=== PATIENT | female | born 1990 | race Caucasian/White ===

== ENCOUNTER 2018-12-26 14:09 | Emergency (ER) | payer BC ==
[2018-12-26 14:18] VITALS: BMI 26.6
--- NOTE | 2018-12-26 14:39 | PDOC ---
History of Present Illness - General Chief Complaint: Lightheaded Stated Complaint: WEAKNESS/DIZZINESS Time Seen by Provider: 12/26/18 14:37 - History of Present Illness Initial Comments: 12/26/18 14:38 28 yo , recent D&C (12/17) at [facility] wga, and h/o migraine disorder, chronic lyme, who p/w pelvic, lower abdominal cramping, and lightheadedness. Patient reports 3 days of lower abdominal cramping, nausea w/out vomiting, intermittent dark, red, vaginal bleeding, noted on urination beginning (12/23/18). 1 panty liner per day. Today experienced worsening lower, abdominal discomfort, nausea, lightheadedness, subjective chills, at rest. Patient recently evaluated at [facility] for D&C (12/17/18), and given one dose of Misopristol. Pt. supposed to f/u Sunday for repeat TVUS, but did not f/u. Patient denies [place]o, vision change, convulsions, cough, wheezing, Fevers, CP, SOB , urinary complaints, BPR, hematuria, diarrhea, constipation, weakness, sensory changes. PMHx: as noted above. H/o cholecystectomy. ROS: as noted SHx: Denies Etoh, IVDA, tobacco use Allergies: NKDA Past History - Past Medical History Allergies/Adverse Reactions: Allergies Allergy/AdvReac Type Severity Reaction Status Date / Time No Known Allergies Allergy Verified 12/26/18 15:13 Home Medications: Ambulatory Orders NK [No Known Home Medication] 12/26/18 - Suicide/Smoking/Psychosocial Hx Smoking History: Former smoker Have you smoked in the past 12 months: No Information on smoking cessation initiated: No Hx Alcohol Use: No Drug/Substance Use Hx: No Review of Systems - Review of Systems Comments:: 12/26/18 14:38 GENERAL/CONSTITUTIONAL: No fever or chills. No weakness. HEAD, EYES, EARS, NOSE AND THROAT: No change in vision. No ear pain or discharge. No sore throat. CARDIOVASCULAR: No chest pain or shortness of breath RESPIRATORY: No cough, wheezing, or hemoptysis. GASTROINTESTINAL: + abdominal and pelvic pain, nausea. No diarrhea or constipation. GENITOURINARY: No dysuria, frequency, or change in urination. MUSCULOSKELETAL: No joint or muscle swelling or pain. No neck or back pain. SKIN: No rash NEUROLOGIC: + lightheadedness. headache, vertigo, loss of consciousness, or change in strength/sensation. ENDOCRINE: No increased thirst. No abnormal weight change HEMATOLOGIC/LYMPHATIC: No anemia, easy bleeding, or history of blood clots. ALLERGIC/IMMUNOLOGIC: No hives or skin allergy. *Physical Exam - Vital Signs Last Vital Signs Temp Pulse Resp BP Pulse Ox 98.0 F 70 18 109/73 100 12/26/18 14:13 12/26/18 14:13 12/26/18 14:13 12/26/18 14:13 12/26/18 14:13 - Physical Exam Comments: 12/26/18 14:38 GENERAL: Awake, alert, and fully oriented, in no acute distress HEAD: No signs of trauma, normocephalic, atraumatic EYES: PERRLA, EOMI, sclera anicteric, conjunctiva clear ENT: Hearing grossly normal, nares patent, oropharynx clear without exudates. Moist mucosa NECK: Normal ROM, supple, no lymphadenopathy, JVD, or masses LUNGS: No distress, speaks full sentences, clear to auscultation bilaterally HEART: Regular rate and rhythm, normal S1 and S2, no murmurs, rubs or gallops, peripheral pulses normal and equal bilaterally. ABDOMEN: Soft, nontender, normoactive bowel sounds. No guarding, no rebound. No masses GENITOURINARY: Nml appearing external genitalia, with dark dried red blood in vaginal vault. absent lesions. Cervical os closed with absent drainage/discharge , neg CMT on BM. Neg adenexal ttp. EXTREMITIES : Normal inspection, Normal range of motion, no edema. No clubbing or cyanosis. NEUROLOGICAL: Cranial nerves II through XII grossly intact. Normal speech, normal gait, no focal sensorimotor deficits SKIN: Warm, Dry, normal turgor, no rashes or lesions noted Moderate Sedation - Procedure Monitoring Vital Signs: Procedure Monitoring Vital Signs Temperature 98.0 F 12/26/18 14:13 Pulse Rate 70 12/26/18 14:13 Respiratory Rate 18 12/26/18 14:13 Blood Pressure 109/73 12/26/18 14:13 O2 Sat by Pulse Oximetry (%) 100 12/26/18 14:13 ED Treatment Course - LABORATORY CBC & Chemistry Diagram: 12/26/18 15:43 12/26/18 15:43 - RADIOLOGY Radiology Studies Ordered: 12/26/18 18:27 EXAM#: TYPE/EXAM: RESULT: [id number] US/TRANSVAGINAL ULTRASOUND US Transvaginal ultrasound Clinical information: evaluate for retained products of conception; status post medical The exam was performed utilizing transvaginal as well as transabdominal technique. No prior imaging studies are available at this facility for direct comparison. There is mild heterogeneous endometrial thickening measuring 0.8 cm with associated mildly increased vascularity on Doppler imaging which may be on the basis of retained products of conception. No embryonic pole or gestational sac is visualized. No free intraperitoneal fluid is noted. There is no obvious myometrial pathology. The ovaries demonstrate no discrete abnormality. No Doppler evidence of ovarian torsion, sensitivity 70%. Impression: As noted above. Reported By: Cesar Starks MD 12/26/181818 Carri Stein Technologist : Vane Cr Transcribed Date/Time: 12/26/181818 Marketing Operations Assistant: Cesar Starks Printed Date/Time: By: Medical Decision Making - Medical Decision Making 12/26/18 14:39 28 yo , recent D&C (12/17) at 5 wga, and h/o migraine disorder, chronic lyme, who p/w 3 days of lower abdominal cramping, nausea w/out vomiting, intermittent dark, red, vaginal bleeding, noted on urination beginning (12/23/18 ), with lightheadedness at rest today. Vitals wnl, AF, A&Ox3. + Dark dried red blood in vaginal vault. absent lesions. Cervical os closed. Recently evaluated at [facility] for D&C (12/17/18), and given one dose of Misopristol. Denies [place]o, vision change, convulsions, Fevers, CP, SOB, urinary complaints, BPR , hematuria, diarrhea, constipation, weakness, sensory changes. Will assess for vs. ectopic , retained POC, septic , threatened , cystitis, PID. Will provide analgesia, IVF, and reassess. Will assess for VBI/TIA, cardiac dysarrythmias, hypoglycemia, electrolyte abnml, metabolic and toxic derangements, acid-base disturbances, infection. ED course: Tylenol, Zofran, NS 1 L 12/26/18 15:36 NSR with absent GLENN, STD. + incomplete RBBB. Normal axis and interval duration. Nml R wave progression and absent Q waves. 12/26/18 16:51 HC.5 CBC,CMP: Unremarkable Trop: Neg Ua: Neg Patient pain improved Patient endorsed by [facility]. Agrees with plan and dispo for f/u in office if labs, and TVUS unremarkable. 12/26/18 18:27 TVUS: The exam was performed utilizing transvaginal as well as transabdominal technique. No prior imaging studies are available at this facility for direct comparison. There is mild heterogeneous endometrial thickening measuring 0.8 cm with associated mildly increased vascularity on Doppler imaging which may be on the basis of retained products of conception. No embryonic pole or gestational sac is visualized. No free intraperitoneal fluid is noted. There is no obvious myometrial pathology. The ovaries demonstrate no discrete abnormality. No Doppler evidence of ovarian torsion, sensitivity 70% 12/26/18 18:46 Patient advised to f.u with [facility] and expresses understanding of symptoms and reports. Stable for d/ cwith return precatuions. Patient to f/u with [facility] as scheduled (12/31/18)for repeat HCG and TVUS Patient has been provided with copies of labs, imaging. 12/26/18 19:10 Patient endorse to [facility] covering for Dr. Arita. Agrees with dispo to f/u on sunday. *DC/Admit/Observation/Transfer Diagnosis at time of Disposition: Pelvic pain, Retained products of conception - Discharge Dispostion Condition at time of disposition: Stable Decision to Admit order: No - Referrals Referrals: Mami Aggarwal MD [Staff Physician] - - Patient Instructions Printed Discharge Instructions: DI for Miscarriage, Therapeutic : Medical Additional Instructions: Please return to the emergency department with any new or worsening symptoms or concerns. Please follow up with your primary care physician or [facility] within 48 hours. - Post Discharge Activity - Attestations Physician Attestion: 12/26/18 14:39 I attest to the information provided in this note.
--- NOTE | 2018-12-26 15:03 | PDOC ---
Attending Attestation - HPI HPI: 12/26/18 17:51 The patient is a 28 year old female , D&C at [facility] (12/17/2018 ) with a significant past medical history of chronic lyme, migraine disorder, who presents to the emergency department today complaining of lower abdominal cramping and lightheadedness. Patient states she has be experiencing abdominal cramping and dark, red, vaginal bleeding, which is intermittent, for approximately 3 days(noticed on 12/23/18) and using 1 panty liner/day. She reports nausea, denies vomiting. The patient denies chest pain, shortness of breath, headache and dizziness. Denies fever, chills, nausea, vomit, diarrhea and constipation. Denies dysuria, frequency, urgency and hematuria. Allergies: NKA Social history: None reported - Physicial Exam PE: 12/26/18 17:53 GENERAL: The patient is in no acute distress. HEAD: Normal with no signs of trauma. EYES: PERRLA, EOMI, sclera anicteric, conjunctiva clear. ENT: Ears normal, nares patent, oropharynx clear without exudates. Moist mucous membranes. NECK: Normal range of motion, supple without lymphadenopathy, JVD, or masses. LUNGS: Breath sounds equal, clear to auscultation bilaterally. No wheezes, and no crackles. HEART:Regular rate and rhythm, normal S1 and S2 without murmur, rub or gallop. ABDOMEN: Soft, nontender, normoactive bowel sounds. No guarding, no rebound. No masses palpable. EXTREMITIES: Normal range of motion, no edema. No clubbing or cyanosis. No erythema, or tenderness. NEUROLOGICAL: Cranial nerves II through XII grossly intact. Normal speech. No focal neurological deficits. MUSCULOSKELETAL: Back non-tender to palpation, no CVA tenderness SKIN: Warm, Dry, normal turgor, no rashes or lesions noted. <Blanca Valderrama - Last Filed: 12/26/18 17:53> - Resident Resident Name: Barrington Anderson - ED Attending Attestation I have performed the following: I have examined & evaluated the patient, The case was reviewed & discussed with the resident, I agree w/resident's findings & plan, Exceptions are as noted - Medical Decision Making 12/26/18 18:28 Laboratory Tests 12/26/18 12/26/18 12/26/18 15:19 15:43 15:43 WBC 6.5 Hgb 12.5 Hct 35.8 Plt Count 217 Sodium 140 Potassium 4.1 Chloride 108 H Carbon Dioxide 27 BUN 9 Creatinine 0.8 Random Glucose 95 Creatine Kinase 49 Troponin I < 0.02 Serum , Qual Urine Ketones Negative Urine Blood Negative Ur Leukocyte Esterase Negative 12/26/18 15:43 WBC Hgb Hct Plt Count Sodium Potassium Chloride Carbon Dioxide BUN Creatinine Random Glucose Creatine Kinase Troponin I Serum , Qual Positive Urine Ketones Urine Blood Ur Leukocyte Esterase U/S demonstrated - Mild heterogenous endometrial thickening measuring 0.8 cm, increased vascularity ? retained products of conception Call will be placed to pt OB <Carri Stein - Last Filed: 12/26/18 18:38> Attestations - Attestations 12/26/18 17:51 Documentation prepared by Blanca Valderrama, acting as medical superintendent for Carri Stein MD. <Blanca Valderrama - Last Filed: 12/26/18 17:53>
[2018-12-26 15:12] VITALS: BP 114/78; PULSE 71; TEMP 98.1
[2018-12-26 15:35] LABS: URINE APPEARANCE CLEAR; URINE BILIRUBIN NEGATIVE (<2.0 mg/dL); URINE COLOR STRAW; URINE GLUCOSE (UA) NEGATIVE (NEGATIVE); URINE KETONE NEGATIVE (NEGATIVE); URINE LEUK ESTERASE NEGATIVE (NEGATIVE); URINE NITRITE NEGATIVE (NEGATIVE); URINE PROTEIN NEGATIVE (NEGATIVE); URINE UROBILINOGEN NEGATIVE mg/dL (0.2-1.0)
[2018-12-26 15:55] LABS: BASO % 0.5 % (0-2.0); EOS % 2.1 % (0-4.5); HEMATOCRIT 35.8 % (32.4-45.2); HEMOGLOBIN 12.5 GM/dL (10.7-15.3); LYMPH % 21.5 % (8-40); MCH 33.4 pg (25.7-33.7); MEAN CELL VOLUME 95.6 fl (80-96); MEAN PLT VOLUME 8.4 fl (7.5-11.1); MONO % 7.1 % (3.8-10.2); NEUT % 68.8 % (42.8-82.8); PLATELET COUNT 217 K/MM3 (134-434); RBC 3.75 M/mm3 (3.60-5.2); RDW 12.8 % (11.6-15.6); WHITE BLOOD COUNT 6.5 K/mm3 (4.0-10.0)
[2018-12-26 16:20] LABS: ALBUMIN 4.1 g/dl (3.4-5.0); ALK PHOS 50 U/L (45-117); ANION GAP 6 MMOL/L (8-16); BILIRUBIN,TOTAL 0.4 mg/dL (0.2-1); BLOOD UREA NITROGEN 9 mg/dL (7-18); CALCIUM 9.1 mg/dL (8.5-10.1); CHLORIDE 108 mmol/L (98-107); CO2 27 mmol/L (21-32); CREATININE 0.8 mg/dL (0.55-1.3); GLUCOSE,RANDOM 95 mg/dL (74-106); POTASSIUM 4.1 mmol/L (3.5-5.1); SGOT/AST 24 U/L (15-37); SGPT/ALT 39 U/L (13-61); SODIUM 140 mmol/L (136-145); TOT PROT 6.9 g/dl (6.4-8.2)
[2018-12-26] MEDS ORDERED: ONDANSETRON 4 MG/2 ML VIAL IVPUSH ONE (16:24)
[2018-12-26] MEDS ORDERED: SODIUM CHLORIDE 1,000 ML IV STA (16:24)
[2018-12-26] MEDS ORDERED: ACETAMINOPHEN 1000 MG/100 ML VIAL (NON FORMULARY) IVPB ONE (16:24)
[2018-12-26] MEDS ORDERED: ONDANSETRON *ODT* 4 MG TABLET ONE (16:38)
[2018-12-26] MEDS ORDERED: ACETAMINOPHEN 325 MG TABLET (FP) ONE (16:38)
[2018-12-26] MEDS ORDERED: ONDANSETRON *ODT* 4 MG TABLET SL ONE (16:39)
[2018-12-26] MEDS ORDERED: ACETAMINOPHEN 325 MG TABLET (FP) PO ONE (16:39)
--- NOTE | 2018-12-27 13:22 | EKG ---
Test Reason : Blood Pressure : / mmHG Vent. Rate : 070 BPM Atrial Rate : 070 BPM P-R Int : 140 ms QRS Dur : 080 ms QT Int : 378 ms P-R-T Axes : 028 043 021 degrees QTc Int : 408 ms NORMAL SINUS RHYTHM WITH SINUS ARRHYTHMIA NORMAL ECG NO PREVIOUS ECGS AVAILABLE Confirmed by TRACE VIEYRA, KARSTEN ([id number]) on 12/27/2018 1:22:34 PM Referred By: Confirmed By:KARSTEN WOODWARD MD
== END 2018-12-26 19:35 | disposition home or self-care (01) ==
LOC: JER 14:09
DX: O07.1 Delayed or excessive hemorrhage following failed attempted termination of pregnancy (principal); R10.2 Pelvic and perineal pain; R42 Dizziness and giddiness; Z86.69 Personal history of other diseases of the nervous system and sense organs; Z86.19 Personal history of other infectious and parasitic diseases
CPT/HCPCS: 36415; 76830-TC; 80053; 81003; 82550; 84484; 84702; 84703; 85025; 93005; 93010; 99282-25